=== PATIENT | male | born 1990 | race Caucasian/White ===

== ENCOUNTER 2017-01-23 11:44 | Emergency (ER) | payer BC, OTHER ==
[~2017-01-23] VITALS: Ht 172.7 cm; Wt 73.6 kg
[~2017-01-23 11:44] MED LIST: CIPR-255 PO
[2017-01-23 11:46] VITALS: BP 120/71; PULSE 98; TEMP 36.7; O2SAT 93; Ht 172.7 cm; Wt 73.6 kg
[2017-01-23 13:18] LABS: LYME DISEASE AB IGG NEG (NEG); LYME DISEASE AB IGM NEG (NEG)
--- NOTE | 2017-01-23 15:42 | EMERGENCY ROOM VISIT NOTE ---
History First contact with patient: 11:50 Chief Complaint: SKIN PROBLEM Stated Complaint: RANDOM BULLSEYE CHRISTIANO ON BACK OF LEG History of Present Illness The patient is a 26 year old male who presents to the Emergency Room with complaints of an itchy rash on the back of his right knee. The patient reports that he noticed itchiness yesterday while mowing grass. When he removed his pants, he saw an area of redness. The patient reports that today it looks like a bull's-eye. The patient reports that he does spend a lot of time outdoors in any area where there are a lot of ticks. He does not specifically recall having any tick bites over the past month. He denies any recent fatigue, fevers , headache, neck pain or other flulike symptoms. He complains mostly of pruritus, and rates his discomfort a 1 out of 10. He denies any insect sting allergies. Tetanus immunization is within the past 10 years. Review of Systems 10 system review was performed and was negative except for pertinent positives and negatives as indicated in history of present illness Past Medical/Surgical History Medical Problems: (1) Nicotine Dependence, Unspecified, Uncomplicated (2) Rectal Abscess Family History No pertinent family history Social History Smoking Status: Current Some Day Smoker Alcohol Use: occasionally Marital Status: in relationship Housing Status: lives with significant other Occupation Status: unemployed Current/Historical Medications Scheduled Ciprofloxacin Hcl (Cipro), 500 MG PO BID Physical Exam Vital Signs Date Time Temp Pulse Resp B/P (MAP) Pulse Ox O2 Delivery O2 Flow Rate FiO2 01/23/17 11:46 36.7 98 16 120/71 93 Room Air Physical Exam CONSTITUTIONAL: Healthy and well nourished. Alert and oriented X 3 with positive affect. She does not appear in any acute distress. HEENT: Normocephalic, atraumatic. Pupils equal, round and reactive. NECK: Full active range of motion without discomfort. MUSCULOSKELETAL: Range of motion of the right knee does not cause any discomfort. There is no joint effusion. INTEGUMENTARY: Examination of the right posterior knee and distal posterior thigh shows a large erythematous rash with central rubor and central ring of clearing. The outer ring is raised. There are no vesicles, pustules, bullae or desquamation. No excoriation noted. The rash is warm to palpation and blanches with pressure. NEUROLOGIC: No focal neurologic deficits noted. Medical Decision & Procedures Laboratory Results Test 01/23/17 12:02 Lyme Disease IgG Antibody NEG (NEG) Lyme Disease IgM Antibody NEG (NEG) ED Course Patient history and physical exam were performed. Nurse's notes were reviewed. Vital signs were reviewed and normal. I explained to the patient that his clinical history and physical exam findings are most suggestive of an insect sting. However, the patient reports that he is frequently in any area with a lot of ticks. Given his daily exposure to the outdoors, I did suggest performing a Lyme screen. The patient was in agreement, but reported that he would rather be called with results if positive. The patient was advised that I would be happy to do so. He was encouraged to intermittently apply ice to the back of the knee. As needed, he was also encouraged to take Benadryl and/ or Zantac for additional antihistamine relief. He was instructed to avoid heat and hot showers. He was encouraged to follow-up with his family doctor if the rash persists, or return to the emergency department for any significant worsening pain, redness, swelling, spreading, red streaks or fever. The patient was happy with plan of care, and voiced understanding of all discharge instructions. The patient's Lyme screen was negative. The patient was advised that I would NOT call him with normal lab results. Medical Decision Medication Reconcilliation Current Medication List: was personally reviewed by me Blood Pressure Screening Patient's blood pressure: Normal blood pressure Impression Primary Impression: Insect bite of knee with local reaction Departure Information Dispostion Home / Self-Care Forms HOME CARE DOCUMENTATION FORM, IMPORTANT VISIT INFORMATION Patient Instructions [facility], ED Allerg React Insect Local Ch Additional Instructions Intermittently apply an ice pack for relief of localized swelling and itch. If better itch relief is needed, take Benadryl 25-50 mg every 6 hrs PLUS Zantac 150 mg every 12 hrs. Keep cool - no hot showers. Follow-up with your family doctor if the rash persists. Return to the emergency department for any progressively worsening redness, red streaks or fever. You have been tested for Lyme's disease. The results usually take approximately one hour to return. If I do not call you today, no news is good news. I will call you with any positive results. Problem Qualifiers Primary Impression: Insect bite of knee with local reaction Encounter type: initial encounter Laterality: right Qualified Codes: S80.261A - Insect bite (nonvenomous), right knee, initial encounter; W57.XXXA - Bitten or stung by nonvenomous insect and other nonvenomous arthropods, initial encounter
== END 2017-01-23 12:19 | disposition home or self-care (01) ==
LOC: C.EDB 11:45
DX: S80.261A Insect bite (nonvenomous), right knee, initial encounter (principal); W57.XXXA Bitten or stung by nonvenomous insect and other nonvenomous arthropods, initial encounter; F17.200 Nicotine dependence, unspecified, uncomplicated

== ENCOUNTER 2017-09-09 14:29 | Emergency (ER) | payer OTHER ==
[~2017-09-09] VITALS: Ht 172.7 cm; Wt 69.3 kg
[2017-09-09 14:36] VITALS: BP 116/63; PULSE 103; TEMP 37.8; O2SAT 98; Ht 172.7 cm; Wt 69.3 kg
== END 2017-09-09 15:35 | disposition left against medical advice (07) ==
LOC: C.EDB 14:30